=== PATIENT | female | born 1995 | race Caucasian/White ===

== ENCOUNTER 2018-09-19 14:35 | Emergency (ER) | payer BC, OTHER ==
[~2018-09-19] VITALS: Ht 177.8 cm; Wt 74.4 kg
[2018-09-19 14:40] VITALS: BP 140/81
[2018-09-19] MEDS ORDERED: ALBUTEROL SULF 2.5 MG/0.5ML(0.5%) NEB SOLN NEB ONE (14:45)
[2018-09-19] MEDS ORDERED: diphenhdrAMINE HCL 50 MG/1 ML VL IM ONE (14:45)
[2018-09-19] MEDS ORDERED: methylPREDNISolone SOD SUCC 125 MG/2 ML VL IM ONE (14:45)
[2018-09-19] MEDS ORDERED: IPRATROPIUM BROM 0.5 MG/2.5ML INH SOL NEB ONE (14:45)
== END 2018-09-19 16:28 | disposition home or self-care (01) ==
LOC: ER 14:38 → EDBD 14:38 → ER 16:28
DX: T78.40XA Allergy, unspecified, initial encounter (principal); J45.909 Unspecified asthma, uncomplicated; X58.XXXA Exposure to other specified factors, initial encounter
CPT/HCPCS: 94640; 96372; 99283; J1200; J2930; J7611; J7644